=== PATIENT | female | born 1935 | race Caucasian/White ===

== ENCOUNTER → 2017-05-14 | Outpatient (CLI) | payer OTHER, MEDICARE | LOC: BMCIMAGING 13:09 | PROVIDERS: ATTEND Nurse Practitioner Adult Health | DX: Z12.31 Encounter for screening mammogram for malignant neoplasm of breast (principal) | CPT/HCPCS: G0202 ==

== ENCOUNTER → 2017-06-11 | Outpatient (CLI) | payer OTHER, MEDICARE | LOC: BMCIMAGING 10:07 | PROVIDERS: ATTEND Nurse Practitioner Adult Health | DX: Z12.2 Encounter for screening for malignant neoplasm of respiratory organs (principal); Z85.820 Personal history of malignant melanoma of skin ==

== ENCOUNTER 2017-06-13 11:11 | Day surgery (SDC) | payer OTHER, MEDICARE ==
[~2017-06-13 11:11] MED LIST: ceFAZolin 2 GM/SWFI 2 GM/20 ML SYR IVP ONE
[2017-06-13] MEDS ORDERED: LR 1,000 ML IV ONE (11:26)
[2017-06-13] MEDS ORDERED: BUPIVACAINE 0.5% 30 ML SDV ONE (12:13)
[2017-06-13] MEDS ORDERED: LIDOCAINE 1% 300 MG/30 ML SDV ONE (12:13)
[2017-06-13] MEDS ORDERED: ROPIVACAINE HCL 20 MG/10 ML INJ EP ONE (12:13)
[2017-06-13] MEDS ORDERED: BACITRACIN 50,000 UNITS/10 ML SYR IRR ONE (12:14)
[2017-06-13] MEDS ORDERED: DEXAMETHASONE 4 MG/ML VIAL ONE (12:14)
[2017-06-13] MEDS ORDERED: PROPOFOL/EMULSION 500 MG/50 ML BOTTLE IV ONE (12:34)
--- NOTE | 2017-06-13 12:34 | PDHPUP ---
History & Physical Update H&P update statement: This history and physical update is based on an assessment of the patient which was completed after admission or registration (within 24 hours), but prior to the surgery/procedure.
[2017-06-13] MEDS ORDERED: LIDOCAINE 2% 5 ML SDV ONE (12:38)
[2017-06-13] MEDS ORDERED: ROPIVACAINE HCL 150 MG/30 ML INJ ONE (12:38)
[2017-06-13] MEDS ORDERED: ALBUTEROL 3 ML DEYVIAL IH PRN (12:54)
[2017-06-13] MEDS ORDERED: DEXAMETHASONE 4 MG/ML VIAL IVP PRN (12:54)
[2017-06-13] MEDS ORDERED: fentaNYL 100 MCG/2 ML INJ IVP PRN (12:54)
[2017-06-13] MEDS ORDERED: ONDANSETRON 4 MG/2 ML VIAL IVP PRN ×2 (12:54→14:39)
[2017-06-13] MEDS ORDERED: NALOXONE HCL 0.4 MG/ML INJ IVP PRN (12:54)
[2017-06-13] MEDS ORDERED: MEPERIDINE 25 MG/ML SYR IVP PRN (12:54)
[2017-06-13] MEDS ORDERED: LR 500 ML IV PRN (12:54)
--- NOTE | 2017-06-13 12:54 | PDANEPAE ---
ANE Past Medical History - Cardiovascular History Hx Hypertension: No Hx Arrhythmias: No Hx Chest Pain: No Hx Coronary Artery / Peripheral Vascular Disease: No Hx CHF / Valvular Disease: No Hx Palpitations: No - Pulmonary History Hx COPD: No Hx Asthma/Reactive Airway Disease: No Hx Recent Upper Respiratory Infection: No Hx Oxygen in Use at Home: No Hx Sleep Apnea: No Sleep Apnea Screening Result - Last Documented: Negative - Renal History Hx Renal Disorders: Yes Renal History Comment: UTI IN 01/2017 - Liver History Hx Hepatic Disorders: No - Neurological & Psychiatric Hx Hx Neurological and Psychiatric Disorders: No - Cancer History Hx Cancer: No - Congenital Disorder History Hx Congenital Disorders: No - GI History Hx Gastrointestinal Disorders: Yes Gastrointestinal History Comment: INTERMITTENT REFLUX FOOD RELATED - Chronic Pain History Chronic Pain: Yes (RT BIG TOE) - Surgical History Prior Surgeries: NONE ANE Review of Systems Review of Systems: - Exercise capacity METS (RN): 4 METS ANE Patient History - Allergies Allergies/Adverse Reactions: lactose Allergy (Verified 06/13/17 11:28) - Home Medications Home Medications: Aspirin DAILY 06/05/17 [Last Taken 06/06/17] Herbal Drugs DAILY 06/05/17 [Last Taken 06/12/17] SIMVASTATIN DAILY 06/05/17 [Last Taken 06/12/17] - NPO status NPO Since - Liquids (Date): 06/13/17 NPO Since - Liquids (Time): 09:00 NPO Since - Solids (Date): 06/12/17 NPO Since - Solids (Time): 19:00 - Smoking Hx Smoking Status: Never smoked - Family Anes Hx Family Hx Anesthesia Complications: NEG ANE Labs/Vital Signs - Vital Signs Blood Pressure: 156/90 Heart Rate: 77 Respiratory Rate: 16 O2 Sat (%): 97 Height: 162.56 cm Weight: 53.977 kg ANE Physical Exam - Airway Neck exam: FROM Mallampati Score: Class 1 Mouth exam: normal dental/mouth exam - Pulmonary Pulmonary: no respiratory distress, no rales or rhonchi, clear to auscultation - Cardiovascular Cardiovascular: regular rate and rhythym, no murmur, rub, or gallop - ASA Status ASA Status: I ANE Anesthesia Plan Anesthesia Plan: GA with mask
[2017-06-13] MEDS ORDERED: fentaNYL 100 MCG/2 ML INJ ONE (13:06)
[2017-06-13] MEDS ORDERED: PROPOFOL 200 MG/20 ML VIAL ONE (14:11)
[2017-06-13] MEDS ORDERED: OXYCODONE/APAP 5/325 TAB PO PRN (14:39)
[2017-06-13] MEDS ORDERED: ONDANSETRON DISINTEGRATING 4 MG TAB PO PRN (14:39)
--- NOTE | 2017-06-13 14:39 | POSTOPPROG ---
Post Op Note Date of Operation: 06/13/17 Surgeon: Sandy Cadet Income Tax Investigator: Fina Cadet Pre-op Diagnosis: Painful Hallux Rigidus and hallux valgus with advanced DJD right Post-op Diagnosis: same Indication: pain Procedure: arthrodesis first MPJ right foot with plate fixation Findings: advanced DJD Inf/Abcess present in the surg proc area at time of surgery?: No EBL: Minimal Complications: none
[2017-06-13 14:52] VITALS: PULSE 70; TEMP 97.5
[2017-06-13 15:53] VITALS: RESP 14
[2017-06-13 16:30] VITALS: BP 129/82; O2SAT 96
--- NOTE | 2017-06-13 23:48 | GOP ---
[f rep st] OPERATIVE REPORT DATE OF OPERATION: SURGEON: Sandy Cadet DPM COMMUNITY DEVELOPMENT MANAGER: Fina Cadet DPM. ANESTHESIA: IV sedation with local, light general. ANESTHESIOLOGIST: Sandy Hare MD. 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 PROCEDURE PERFORMED: Arthrodesis, 1st metatarsophalangeal joint with plate fixation, right foot. FINDINGS: DESCRIPTION OF PROCEDURE: The patient presented to the hospital approximately 1 -1/2 hours prior to foot surgery after having been n.p.o. past midnight. The patient's preoperative history and physical and all lab studies were reviewed, and there were no contraindications to the proposed procedure. The patient was given Ancef 2 g IV 1/2 hour prior to foot surgery. Patient was taken to the OR room and placed on the OR table in a supine position where appropriate anesthetic agents were administered. This was supplemented with a local block to the right foot utilizing a total of 10 cc of 0.5% Naropin with 10 cc of 1% lidocaine plain. This was given to the right distal midfoot in a Díaz block fashion and to the posterior tibial nerve as it courses through the tarsal tunnel. The right lower extremity was then prepped and draped in usual aseptic fashion and covered with a sterile stockinette. A sterile pneumatic ankle tourniquet was applied and padded well underneath with Webril. Utilizing elevation overlying Esmarch bandage, the foot was exsanguinated and the tourniquet was inflated to a pressure of 225 mmHg. The foot was then lowered to the orthopedic table. Attention was then directed to the dorsal medial aspect of the 1st metatarsophalangeal joint, where an approximate 5-6 cm linear longitudinal incision was made. This incision was made medial to the extensor hallucis longus tendon. The incision was deepened through the subcutaneous tissues to the level of the capsular tissues, taking care to preserve the neurovascular structures. Any bleeders were clamped and cauterized as needed. A linear capsular incision was made and the capsular tissues were reflected off the dorsal medial aspect of the head of the 1st metatarsal and base of the proximal phalanx. The hypertrophic bone to the dorsal and medial aspects of the head of 1st metatarsals were resected utilizing a rongeur, then a sagittal saw. The bone was very soft consistent with osteopenia. The 1st metatarsophalangeal joint was inspected and there was advanced degenerative joint disease with 80% of the 1st metatarsal head lacking articular cartilage to the level of subchondral bone. The exuberant synovitic tissue was also excised and placed on the back table. The hypertrophic bone to the medial aspect of the 1st metatarsal was resected utilizing the sagittal saw. The 1st metatarsal head was then exposed and a guidewire was placed into the central aspect of the head of the 1st metatarsal in a distal proximal fashion to serve as an axis guide for the reamer provided by the paragon system. The reamer was placed over the guidewire and the remaining articular cartilage was resected off the head of the 1st metatarsal to the level of healthy bone optimal for a fusion procedure. The guidewire was removed. The surgical site was copiously irrigated with a sterile saline bacitracin solution. Any remaining hypertrophic bone was resected from the head of the 1st metatarsal to a smooth surface. Attention was then directed to the central aspect base of the proximal phalanx, where a guidewire was placed in a proximal to distal fashion to serve as a guidewire. Placement of the pin was checked with the C-arm. Utilizing the reamer provided by the [employer] System complimenting the reamer used to the 1st metatarsal head, the remaining articular cartilage at the base of the proximal phalanx was resected to the level of subchondral, healthy bone. The guidewire was removed and any remaining hypertrophic borders were remodeled to a smooth surface. The surgical site was again copiously irrigated with sterile saline bacitracin solution. The fusion sites were then prepared by fenestrating with a 2.0 drill bit and then an awl and a mallet. The bone was soft and there were signs of osteopenia. Guillermina bone graft was then placed on the head of the 1st metatarsal and the base of the proximal phalanx. The proximal phalanx was then held in a rectus position upon the head of the 1st metatarsal and it appeared that a 5-degree size medium Wilmar plate fit most optimally. This was temporarily fixated to the fusion site with olive pins. The guidewire for the headless Wilmar screw was placed in a proximal medial to distal lateral direction, crossing the fusion site. A 2nd K-wire was placed in a medial distal to proximal lateral direction, again crossing the fusion site for temporary fixation. A C-arm was utilized to check the alignment of the fusion site and placement of the K-wire and plate, which was optimal. Attention was then brought to the K-wires extended in a medial proximal to distal lateral direction, where it was prepared for a 3.5 headless screw. A 3.5 , 28 mm headless screw was then placed over the guidewire. The guidewires were removed and the ostomy site was stable. The 1st locking screw was then placed across the plate at the distal medial arm, which was a 2.7, measuring 13 mm in length. The olive pins were removed, and the compression screw was placed in the proximal aspect of the plate, a 2.7, measuring 16 mm in length. A C-arm picture was obtained and the screw length was too short. Thus, the 2.7 screw was removed and a 3.5 compressing screw measuring 20 mm in length was placed to the most proximal hole, securing the plate. Attention was then redirected to the distal lateral arm of the plate, where a 2.7 locking screw measuring 12 mm in length was placed. Attention was then directed to the plate proximal to the fusion site, where 2 more locking screws were placed, both 2.7 screws measuring 17 mm in length. The screw could not be placed in the 3rd distal hole due to the placement of the initial compression screw crossing the fusion site. The osteotomy site was stable and well aligned , and checked with the C-arm. The surgical site was copiously irrigated with sterile saline bacitracin solution. The capsular and periosteal tissues were reapproximated with 2-0 Vicryl. The tourniquet was released. There was immediate capillary refill to all digits and hemostasis. The subcutaneous tissues were reapproximated with 4- 0 Monocryl. The skin was reapproximated with 4-0 Prolene utilizing interrupted horizontal mattress sutures. An additional 8 cc of 0.5% Naropin was given proximal to the surgical site. A mildly compressive dry sterile gauze dressing was applied consisting of Xeroform, 4 x 4 gauze, Awa, and Randall bandage. Randall wraps were applied to the foot, ankle and leg up to the knee. Patient tolerated the procedure and anesthesia well, transferred to the recovery room with vital signs stable and vascular status intact to the right lower extremity. In the recovery room, the patient received postoperative oral and written home care instructions. The patient was given prescriptions for oxycodone delayed release, Percocet and Phenergan to take as prescribed for pain. The patient is also permitted to take 400-600 mg of ibuprofen every 8 hours with meals for the 1st 48 hours. The patient instructed to wear the cast boot at all times when ambulating, and can only bear weight on the heel, utilizing crutches or a walker for ambulation assist. She is not to bear weight on the forefoot. The patient was dispensed a cryo cuff and instructed on its usage. Postoperative radiographs were ordered of the right foot. Surgical findings include significant osteopenia, underlying osteoporosis likely. The procedures went well without complications. The patient is scheduled for her 1st postoperative visit in 3 days. Please call the office earlier if any questions or problems arise. /[id number]/MODL MTDD
== END 2017-06-13 16:19 | disposition home or self-care (01) ==
LOC: FSGY 11:11
PROVIDERS: ATTEND Podiatrist
PROC: 0SGM0JZ Fusion of Right Metatarsal-Phalangeal Joint with Synthetic Substitute, Open Approach (ICD-10-PCS; principal; 2017-06-13 12:30)
DX: M20.21 Hallux rigidus, right foot (principal); M20.11 Hallux valgus (acquired), right foot; M19.071 Primary osteoarthritis, right ankle and foot; E78.5 Hyperlipidemia, unspecified
CPT/HCPCS: C1713; C1762; J0690; J1100; J2704; J2795; J3010

== ENCOUNTER → 2018-01-28 | Outpatient (CLI) | payer OTHER, MEDICARE ==
[~2018-01-28] MED LIST changes: +IOPAMIDOL (ISOVUE-300) 100 ML BTL ONE; -ceFAZolin 2 GM/SWFI 2 GM/20 ML SYR IVP ONE
== END ==
LOC: FIMAGING 14:42
PROVIDERS: ATTEND Nurse Practitioner Adult Health
DX: K57.30 Diverticulosis of large intestine without perforation or abscess without bleeding (principal); M51.36 Other intervertebral disc degeneration, lumbar region; M51.37 Other intervertebral disc degeneration, lumbosacral region; I70.0 Atherosclerosis of aorta; Z85.820 Personal history of malignant melanoma of skin
CPT/HCPCS: 74177; Q9967

== ENCOUNTER → 2018-02-10 | Outpatient (CLI) | payer OTHER, MEDICARE | LOC: FIMAGING 15:35 | PROVIDERS: ATTEND Nurse Practitioner Adult Health | DX: R19.09 Other intra-abdominal and pelvic swelling, mass and lump (principal) ==

== ENCOUNTER → 2018-03-31 | Outpatient (CLI) | payer OTHER, MEDICARE | LOC: BMCIMAGING 15:20 | PROVIDERS: ATTEND Nurse Practitioner Adult Health | DX: M25.552 Pain in left hip (principal); E04.2 Nontoxic multinodular goiter | CPT/HCPCS: 76536-PO ==

== ENCOUNTER → 2018-05-14 | Outpatient (CLI) | payer OTHER, MEDICARE | LOC: BMCIMAGING 12:45 | PROVIDERS: ATTEND Nurse Practitioner Adult Health | DX: Z12.31 Encounter for screening mammogram for malignant neoplasm of breast (principal); Z13.820 Encounter for screening for osteoporosis; M85.89 Other specified disorders of bone density and structure, multiple sites ==

== ENCOUNTER 2018-06-24 12:28 | Day surgery (SDC) | payer OTHER, MEDICARE ==
[2018-06-24] MEDS ORDERED: LR 1,000 ML IV ONE (12:35)
[2018-06-24] MEDS ORDERED: ceFAZolin 2 GM/DEXTROSE 100 ML IV ONE (12:40)
--- NOTE | 2018-06-24 13:37 | PDANEPAE ---
ANE History of Present Illness 82 yo female with L bunion for bunionectomy. ANE Past Medical History - Cardiovascular History Hx Hypertension: No Hx Arrhythmias: No Hx Chest Pain: No Hx Coronary Artery / Peripheral Vascular Disease: No Hx CHF / Valvular Disease: No Hx Palpitations: No - Pulmonary History Hx COPD: No Hx Asthma/Reactive Airway Disease: No Hx Recent Upper Respiratory Infection: No Hx Oxygen in Use at Home: No Hx Sleep Apnea: No Sleep Apnea Screening Result - Last Documented: Negative - Neurologic History Hx Cerebrovascular Accident: No Hx Seizures: No Hx Dementia: No - Endocrine History Hx Diabetes: No Hypothyroid: No Hyperthyroid: No Obesity: no - Renal History Hx Renal Disorders: No Renal History Comment: UTI IN 01/2017 - Liver History Hx Hepatic Disorders: No - Neurological & Psychiatric Hx Hx Neurological and Psychiatric Disorders: No Neurological / Psychiatric History Comment: SITUATIONAL ANXIETY - Cancer History Hx Cancer: No - Congenital Disorder History Hx Congenital Disorders: No - GI History Hx Gastrointestinal Disorders: Yes Gastrointestinal History Comment: INTERMITTENT REFLUX FOOD RELATED - Other Health History Other Health History: [place] - Chronic Pain History Chronic Pain: Yes (bilat hip pain) - Surgical History Prior Surgeries: RIGHT FOOT BUNIONECTOMY ANE Review of Systems Review of Systems: - Exercise capacity METS (RN): 4 METS ANE Patient History - Allergies Allergies/Adverse Reactions: lactose Allergy (Verified 06/17/18 11:15) Other-Enter Comments - Home Medications Home Medications: Aspirin 81 mg DAILY 06/05/17 [Last Taken 1 Week Ago ~06/17/18] Herbal Drugs DAILY 06/05/17 [Last Taken 2 Weeks Ago ~06/10/18] SIMVASTATIN DAILY 06/05/17 [Last Taken 06/22/18] - NPO status NPO Since - Liquids (Date): 06/24/18 NPO Since - Liquids (Time): 10:00 NPO Since - Solids (Date): 06/23/18 NPO Since - Solids (Time): 18:00 - Smoking Hx Smoking Status: Never smoked Marijuana use: No - Alcohol Use Alcohol Use: None - Family Anes Hx Family Anes Hx: neg - N/A Family Hx Anesthesia Complications: NONE ANE Labs/Vital Signs - Vital Signs Blood Pressure: 138/77 Heart Rate: 74 Respiratory Rate: 16 O2 Sat (%): 93 Height: 162.56 cm Weight: 53.977 kg ANE Physical Exam - ASA Status ASA Status: II ANE Anesthesia Plan Anesthesia Plan: GA with mask Total IV Anesthesia: Yes
[2018-06-24] MEDS ORDERED: LIDOCAINE 1% 300 MG/30 ML SDV ONE (13:41)
[2018-06-24] MEDS ORDERED: BUPIVACAINE 0.5% 30 ML SDV ONE (13:41)
[2018-06-24] MEDS ORDERED: DEXAMETHASONE 4 MG/ML VIAL ONE (13:41)
[2018-06-24] MEDS ORDERED: ROPIVACAINE HCL 150 MG/30 ML INJ ONE (13:41)
[2018-06-24] MEDS ORDERED: BACITRACIN 50,000 UNITS/10 ML SYR IRR ONE (13:42)
--- NOTE | 2018-06-24 18:24 | PDHPUP ---
History & Physical Update H&P update statement: This history and physical update is based on an assessment of the patient which was completed after admission or registration (within 24 hours), but prior to the surgery/procedure. H&P update: H&P reviewed & patient examined (no changes), no change in patient' s condition since H&P completed H&P changes: none, patient in good stable health
[2018-06-24] MEDS ORDERED: PROPOFOL/EMULSION 500 MG/50 ML BOTTLE IV ONE (18:37)
[2018-06-24] MEDS ORDERED: fentaNYL 100 MCG/2 ML INJ ONE (18:42)
[2018-06-24] MEDS ORDERED: ALBUTEROL 3 ML DEYVIAL IH PRN (19:16)
[2018-06-24] MEDS ORDERED: NALOXONE HCL 0.4 MG/ML INJ IVP PRN (19:16)
[2018-06-24] MEDS ORDERED: HYDROCODONE/APAP 5/325 TAB PO PRN (19:16)
[2018-06-24] MEDS ORDERED: LR 500 ML IV PRN (19:16)
[2018-06-24] MEDS ORDERED: DEXAMETHASONE 4 MG/ML VIAL IVP PRN (19:16)
[2018-06-24] MEDS ORDERED: fentaNYL 100 MCG/2 ML INJ IVP PRN (19:16)
[2018-06-24] MEDS ORDERED: ONDANSETRON 4 MG/2 ML VIAL IVP PRN (19:16)
--- NOTE | 2018-06-24 19:16 | PDANEPAE ---
ANE Past Medical History - Cardiovascular History Hx Hypertension: No Hx Arrhythmias: No Hx Chest Pain: No Hx Coronary Artery / Peripheral Vascular Disease: No Hx CHF / Valvular Disease: No Hx Palpitations: No - Pulmonary History Hx COPD: No Hx Asthma/Reactive Airway Disease: No Hx Recent Upper Respiratory Infection: No Hx Oxygen in Use at Home: No Hx Sleep Apnea: No Sleep Apnea Screening Result - Last Documented: Negative - Neurologic History Hx Cerebrovascular Accident: No Hx Seizures: No Hx Dementia: No - Endocrine History Hx Diabetes: No - Renal History Hx Renal Disorders: No Renal History Comment: UTI IN 01/2017 - Liver History Hx Hepatic Disorders: No - Neurological & Psychiatric Hx Hx Neurological and Psychiatric Disorders: No Neurological / Psychiatric History Comment: SITUATIONAL ANXIETY - Cancer History Hx Cancer: No - Congenital Disorder History Hx Congenital Disorders: No - GI History Hx Gastrointestinal Disorders: Yes Gastrointestinal History Comment: INTERMITTENT REFLUX FOOD RELATED - Other Health History Other Health History: [place] - Chronic Pain History Chronic Pain: Yes (bilat hip pain) - Surgical History Prior Surgeries: RIGHT FOOT BUNIONECTOMY ANE Review of Systems Review of Systems: - Exercise capacity METS (RN): 4 METS ANE Patient History - Allergies Allergies/Adverse Reactions: lactose Allergy (Verified 06/17/18 11:15) Other-Enter Comments - Home Medications Home Medications: Aspirin 81 mg DAILY 06/05/17 [Last Taken 1 Week Ago ~06/17/18] Herbal Drugs DAILY 06/05/17 [Last Taken 2 Weeks Ago ~06/10/18] SIMVASTATIN DAILY 06/05/17 [Last Taken 06/22/18] - NPO status NPO Since - Liquids (Date): 06/24/18 NPO Since - Liquids (Time): 16:00 NPO Since - Solids (Date): 06/23/18 NPO Since - Solids (Time): 18:00 - Smoking Hx Smoking Status: Never smoked - Family Anes Hx Family Hx Anesthesia Complications: NONE ANE Labs/Vital Signs - Vital Signs Blood Pressure: 138/77 Heart Rate: 74 Respiratory Rate: 16 O2 Sat (%): 93 Height: 162.56 cm Weight: 53.977 kg ANE Physical Exam - Airway Neck exam: FROM Mallampati Score: Class 1 Mouth exam: normal dental/mouth exam - Pulmonary Pulmonary: no respiratory distress, no rales or rhonchi, clear to auscultation - Cardiovascular Cardiovascular: regular rate and rhythym, no murmur, rub, or gallop - ASA Status ASA Status: I ANE Anesthesia Plan Anesthesia Plan: MAC
--- NOTE | 2018-06-24 20:53 | POSTANESTH ---
Post Anesthetic Evaluation Cardiovascular Status: Normal, Stable, Similar to Pre-Op Cond Respiratory Status: Normal, Stable, Similar to Pre-op Cond. Level of Consciousness/Mental Status: Can Participate in Eval Pain Control: Adequate, Prn Tx Ordered Nausea/Vomiting Control: Adequate, Prn Tx Ordered Complications Possibly Related to Anesthesia: None Noted
--- NOTE | 2018-06-24 20:54 | POSTOPPROG ---
Post Op Note Date of Operation: 06/24/18 Surgeon: Hugo Cadet Gallery Director: Fina Cadet Anesthesiologist: hugo Hare Pre-op Diagnosis: hallux valgus with rigidus deformity left Post-op Diagnosis: same Indication: pain Procedure: fusion first Metatarsalphalangeal joint with plate and screw fixation Findings: degenerative joint disease first MTPJ Inf/Abcess present in the surg proc area at time of surgery?: No Complications: none
[2018-06-24 21:21] VITALS: BP 134/76
--- NOTE | 2018-06-25 00:36 | GOP ---
[f rep st] OPERATIVE REPORT DATE OF OPERATION: SURGEON: Sandy Cadet DPM DESKTOP SUPPORT ENGINEER: Fina Cadet DPM. ANESTHESIA: IV sedation with local, light general. ANESTHESIOLOGIST: Helen Hare MD. PREOPERATIVE DIAGNOSIS: Painful hallux valgus with hallux rigidus, 1st metatarsophalangeal joint, le ft foot. POSTOPERATIVE DIAGNOSIS: Painful hallux valgus with hallux rigidus and degenerative joint disease, l eft 1st metatarsophalangeal joint. PROCEDURE PERFORMED: Arthrodesis 1st metatarsophalangeal joint with plate fixation, left foot. FINDINGS: INDICATIONS: The patient presented to the hospital approximately 6-1/2 hours prior to foot surgery a nd had to wait in the preoperative room since the equipment for internal fixation had not yet been st erilized, which was overlooked. Thus, the patient waited in the preoperative room area where the [facility] had started the IV. The patient had been n.p.o. past midnight. The patient was given 2 g of Anc ef IV 0.5 hour prior to foot surgery. The patient's preoperative history and physical and all studie s were reviewed and there were no contraindications to the proposed procedure. The patient was taken to the OR room and placed on the OR table in a supine position where the approp riate anesthetic agents were administered. This was supplemented with a local block to the left foot utilizing a total of 10 cc of 0.5% ropivacaine with 10 cc of 1% lidocaine plain. This was given to the posterior tibial nerve as it courses through the tarsal tunnel and in a Díaz block fashion to the base of the 1st metatarsal. The left lower extremity was then prepped and draped in usual aseptic f ashion covered with a sterile stockinette. A sterile pneumatic ankle tourniquet was applied and padd ed well underneath with Webril. Utilizing elevation overlying Esmarch bandage, the foot was exsangui nated and the tourniquet was inflated to a pressure of 225 mmHg. The foot was then lowered to the or thopedic table. Attention was then directed to the dorsal medial aspect of the 1st metatarsophalangeal joint where an approximate 6 cm linear longitudinal incision was made. The incision was deepened through the subcu taneous tissues to the level of the capsular tissues taking care to preserve the neurovascular struct ures. The incision was made medial to the extensor hallucis longus tendon. Any bleeders were clampe d and cauterized as needed. The subcutaneous tissues were freed from the underlying capsular tissues to the dorsal medial aspects of the 1st metatarsophalangeal joint. A linear capsular incision was m ann and the capsule tissues were reflected off the dorsal and medial aspects of the 1st metatarsal he ad and base of the distal phalanx and also the dorsal aspect of the proximal phalanx and 1st metatars al shaft for preparation of the plate. The hypertrophic bone to the medial aspect of the head of the 1st metatarsal was resected utilizing the sagittal saw, tangential to the shaft of the metatarsal. Subchondral cyst presented to the medial aspect of the head of 1st metatarsal. The 1st metatarsophal angeal joint was inspected and there was significant thinning of the articular cartilage with erosion of the articular cartilage to subchondral bone to the central aspect of the 1st metatarsal head. Th e bone to the 1st metatarsal was soft, consistent with osteopenia. The 1st metatarsal head was then exposed and a guidewire was placed into the central aspect of the 1st metatarsal head into the distal shaft of the metatarsal to serve as an axis guide for the reamer provided by the paragon system. Th e reamer was placed over the guidewire and the remaining articular cartilage was resected off the 1st metatarsal head. The guidewire was removed and the surgical site was copiously irrigated with steri le saline bacitracin solution. Attention was then directed to the central aspect of the base of the proximal phalanx where a guidewire was placed in a proximal to distal fashion to serve again as an ax is guide. Utilizing the reamer provided by the paragon system complementing the reamer utilized to t he 1st metatarsal head, the same size, the articular cartilage was resected off the base of the proxi mal phalanx. Any remaining hypertrophic bone to the borders was resected utilizing the rongeur. The surgical site was copiously irrigated with sterile saline bacitracin solution. The fusion sites wer e then prepared by fenestrating the bone with a 2.0 drill bit and then an awl and mallet. Guillermina lucero ne graft was then placed upon the head of the 1st metatarsal and the proximal phalanx was held flush against the 1st metatarsal head in a rectus position. A size medium 5 degree paragon plate was then placed on the fusion site and temporarily fixated to the bone with olive pins. It should be mentione d prior to joint preparation. The bone rasp was utilized to resect some bone off the dorsal aspect h ead of the 1st metatarsal so that the plate would sit flush. The guidewire to the headless 3.5 screw was then placed across the fusion site in a distal medial to lateral proximal direction crossing thr ough the base of the proximal phalanx and head of the 1st metatarsal. A C-arm was utilized to check alignment which was intact. First, a 36 mm headless 3.5 paragon screw was placed over the guidewire. The guidewire was removed and it appeared that the plate had elevated upon the fusion site and the hallux was more plantar flexed than what was proposed at due to the osteopenic nature of the bone. T he decision was made to remove this screw and reintroduce another screw in a proximal to distal fashi on. The screw was removed and the plate was placed again upon the fusion site in the proposed positi on. An additional K-wire was used to lock the fusion site so as to avoid drifting of the fusion site during placement of the next screw. A K-wire was then placed in a proximal medial to lateral distal direction crossing the fusion site. A 2nd K-wire was placed across the fusion site for temporary fi xation. Utilizing a standard technique for the paragon screw system, a 3.5 headless screw measuring 34 mm in length was placed over the guidewire. The screw length was noted to be too long, thus it wa s removed and a 4.0 x 30 mm screw was placed over the guidewire. The fusion site was flush, stable i n good alignment. Attention was then redirected to the dorsal aspect of the fusion site in the area of the plate where a 2.7 locking screw measuring 16 mm in length was placed to the base of the proximal phalanx. Throug h the 2nd distal hole to the plate, a 2.7, 13 mm locking screw was placed. All the pins were removed and attention was directed to the compression hole where a 3.5 nonlocking screw was placed measuring 12 and 20 mm in length. Attention was then directed to the 2 other locking holes to the 1st metatar tamiko head region where a 2.7 screw measuring 17 mm in length was placed and into the other hole, a 2.7 screw measuring 18 mm in length was placed. The site was then checked again with a C-arm and the fu antonina site was in optimal alignment. However, when evaluating the lateral view of the fusion site. T he initial compression screw was noted to be excessively long plantarly and to avoid irritation on we ightbearing. A decision was made to remove this screw, which was performed and it was replaced with a 4.0 headless screw measuring 22 mm in length. The surgical site was copiously irrigated with a rodri rile saline bacitracin solution. The tourniquet was released prior to placement of all screws and th ere was immediate capillary refill to all digits and hemostasis. The capsular tissues were reapproxi mated with 2-0 Vicryl and 3-0 Vicryl. The subcutaneous tissues were reapproximated with Monocryl uti lizing interrupted sutures. The skin was reapproximated with interrupted horizontal mattress sutures utilizing 4-0 Prolene. Additional 8 cc of 0.5% ropivacaine was given proximal to the surgical site. A mildly compressive dry sterile dressing was applied utilizing Xeroform, 4 x 4 gauze, Awa, Kerli x, and Randall bandages. The patient tolerated the procedure and anesthesia well. Transferred to the recovery room with vital signs stable and vascular status intact to the left lower extremity. In the recovery room, the eneida ent received oral and written postoperative home care instructions. The patient was given prescripti on for OxyContin 10 mg delayed release and Phenergan to take postoperatively as prescribed for pain. The patient still had some oxycodone on 5 mg tablets from the prior procedure at home. The patient instructed she can take 1 of these every 4-6 hours as needed for breakthrough pain. The OxyContin de layed release, they were informed to take 1 every 12 hours for pain. The patient instructed to wear the cast boot at all times when ambulating and is only permitted to bear weight on the heel for franklin ce, utilize the Roll-A-Bout or crutches for ambulation assist to offload the forefoot. The patient h as a Cryo/Cuff at home and is instructed on its usage again. Postoperative radiographs were ordered. The procedure went well without any significant complications. She is scheduled for 1st postoperat odette visit in 2 days. Please call the office earlier if any questions or problems were to arise. DESCRIPTION OF PROCEDURE: /[id number]/[id number]
== END 2018-06-24 22:20 | disposition home or self-care (01) ==
LOC: FSGY 12:28
PROVIDERS: ATTEND Podiatrist
PROC: 0SGN04Z Fusion of Left Metatarsal-Phalangeal Joint with Internal Fixation Device, Open Approach (ICD-10-PCS; principal; 2018-06-24 14:00)
DX: M20.22 Hallux rigidus, left foot (principal); E78.5 Hyperlipidemia, unspecified; E55.9 Vitamin D deficiency, unspecified
CPT/HCPCS: C1713; C1762; J0690; J1100; J2704; J2795; J3010

== ENCOUNTER → 2018-09-28 | Outpatient (CLI) | payer OTHER, MEDICARE | LOC: BMCIMAGING 08:33 | PROVIDERS: ATTEND Nurse Practitioner Adult Health | DX: E04.1 Nontoxic single thyroid nodule (principal) | CPT/HCPCS: 76536-PO ==

== ENCOUNTER → 2018-09-29 | Outpatient (CLI) | payer OTHER, MEDICARE | LOC: BMCIMAGING 10:13 | PROVIDERS: ATTEND Nurse Practitioner Adult Health | DX: C43.9 Malignant melanoma of skin, unspecified (principal); J98.4 Other disorders of lung ==